=== PATIENT | female | born 1975 | race Two or more races ===

== ENCOUNTER 2016-08-04 12:53 | Day surgery (SDC) | payer OTHER ==
[~2016-08-04] VITALS: Ht 167.6 cm; Wt 98.0 kg
[2016-08-04] MEDS ORDERED: HYDROCHLOROTHIA25 MG PO (13:23)
[2016-08-04] MEDS ORDERED: METOPROLOL TART25 MG PO (13:25)
[2016-08-04] MEDS ORDERED: LISINOPRIL40 MG PO (13:25)
[2016-08-04] MEDS ORDERED: DAILY VITE1 EAC1 PO (13:27)
[2016-08-04 13:34] VITALS: BP 149/94
[2016-08-04 13:35] LABS: HEMATOCRIT 40.4 % (36.0-46.0); MCH 30.5 PG (29.0-34.0); MCHC 34.7 G/DL (30.0-36.0); MEAN PLAT.VOLUME 9.7 uM^3 (9.5-12.4); PLATELET COUNT 389 K/uL (156-360); RBC DIS.WIDTH-CV 12.1 % (11.8-14.6); RBC DIS.WIDTH-SD 38.6 % (39-53); RED BLOOD COUNT 4.59 M/uL (3.80-5.20)
[2016-08-04 14:09] LABS: ALKALINE PHOSPHATASE 55 IU/L (3-129); ANION GAP 9 MEQ/L (2-14); CHLORIDE 99 MEQ/L (99-109); GFR ESTIMATE (CALCULATED) > 59 mL/min/; GLUCOSE 100 mg/dL (70-99); POTASSIUM 3.9 MEQ/L (3.7-5.4); SAMPLE HEMOLYSIS CHECK 0; SAMPLE ICTERIC CHECK 0; SAMPLE LIPEMIA CHECK 0; SODIUM 134 MEQ/L (136-147); TOTAL BILIRUBIN 0.5 MG/DL (0.0-1.0); UREA NITROGEN (BUN) 10 mg/dL (9-23)
[2016-08-04 21:33] VITALS: BP 167/86
[2016-08-04 22:25] VITALS: BP 167/87
== END 2016-08-04 22:38 | disposition home or self-care (01) ==
LOC: SDC 12:53
PROVIDERS: Ophthalmology
DX: H43.12 Vitreous hemorrhage, left eye (principal); H33.42 Traction detachment of retina, left eye; H34.8122 Central retinal vein occlusion, left eye, stable; I10 Essential (primary) hypertension; Z87.891 Personal history of nicotine dependence
CPT/HCPCS: 80053; 85027; J0131; J0690; J1100; J1170; J2250; J2795; J3010